=== PATIENT | male | born 1960 | race Caucasian/White ===

== ENCOUNTER 2016-11-05 10:37 | Observation (INO) | payer BC ==
[~2016-11-05] VITALS: Ht 180.3 cm; Wt 102.0 kg
--- NOTE | ~2016-11-05 | CR72 ---
[facility] A Service of [facility] & [facility] RADIOLOGY TEXT RESULTS PATIENT: LYNETTE PETERSEN LOCATION: [facility] : 60 UNIT #: [id number] AGE: [address]: Ira Courtney MD SEX: M ORDER DR: [id number] [facility] [address] [place], [place] [address] [id number] MR#: [id number] Acc #: [id number] NAME: LYNETTE PETERSEN : 1960 SEX: M STUDY DATE/TIME: 11/05/2016 11:13 UNIT: [facility] ROOM: STUDY DESCRIPTION: CR Chest Single View Portable Attending Physician: Ira Courtney M.D. Ordering Physician: Ira Courtney M.D. Primary Care Physician: Triston Larsen M.D. MEDICAL IMAGING REPORT This report is preliminary unless electronic signature is present EXAM Chest portable 11/05/2016 1113 hours HISTORY 55-year-old man with complaint of chest pain and shortness of air for 1 day. History of hypertension. COMPARISON None. FINDINGS Single upright view of the chest demonstrates normal heart size. Mediastinal and hilar contours are normal. Lungs are clear and there are no effusions. IMPRESSION No acute cardiopulmonary findings. Dictated by... Ariela Gómez M.D. THIS IS AN ELECTRONICALLY VERIFIED REPORT Ariela Gómez M.D. at 11/05/2016 1:44 PM ADELINA/popeye TD: 11/05/2016 13:24 JOB #: [id number] MEDICAL IMAGING REPORT Page 1 of 1 COPY
--- NOTE | ~2016-11-05 | HP ---
Unit #: [id number] #: [id number] Patient: LYNETTE PETERSEN [id number] [facility]. [place], [place] [address] [id number] MR#: [id number] NAME: LYNETTE PETERSEN ROOM: Age: 55 Sex: M Admission Date: 11/05/2016 : 1960 Attending Physician: Ira Courtney M.D. Primary Care Physician: Triston Larsen M.D. HISTORY AND PHYSICAL HISTORY OF PRESENT ILLNESS This is a 55-year-old white male who was at work yesterday and began to have substernal chest tightness with associated shortness of breath. His chest tightness lasts for two and a half hours before subsiding. Today the patient went to work and at approximately (1) p.m., he began to have the same chest tightness that occurred on exertion. There was no radiation to his neck, arm, or jaw. He had associated shortness of breath and diaphoresis. He had a stress test four years ago because of chest pain that was negative. Afterward, the patient developed chest pain and cardiac catheterization was done. He had stents placed to the circumflex artery and obtuse marginal branch at [facility] in [place], [place]. On arrival to the emergency room, the patient still had some chest discomfort. His electrocardiogram shows no acute ischemic changes. Troponin initially negative. He does have other risk factors for ischemic heart disease. Includes hypertension, hyperlipidemia, and has smoked a pipe in the past. PAST MEDICAL HISTORY 1. Hypertension. 2. Hyperlipidemia. 3. PCI and stent to the OM-1 and diagonal branch four years ago at [facility] in [place], [place]. No details available. 4. Occasional pipe smoker. PAST SURGICAL HISTORY 1. Tonsillectomy. 2. Knee arthroscopy surgery. SOCIAL HISTORY The patient is and works for [employer]. He smokes a pipe on rare occasions. No illicit drug or alcohol use. FAMILY HISTORY The patient is adopted. He has been told that his biological mother has some heart problems in the past. Father's history is unknown. ALLERGIES No known drug allergies. HOME MEDICATIONS 1. Lisinopril 40 mg daily. 2. Simvastatin 20 mg nightly. 3. Prilosec 20 mg daily. 4. Testosterone 0.5 mL IM q.2 weeks. Unit #: [id number] #: [id number] Patient: LYNETTE PETERSEN 5. Norvasc 5 mg daily. 6. Flonase two sprays each nostril daily. 7. Hydrochlorothiazide 12.5 mg daily. REVIEW OF SYSTEMS A 10-point review of systems negative except details stated in the HPI. PHYSICAL EXAMINATION VITAL SIGNS: Blood pressure 116/96, heart rate 72, temperature 98.5. BMI 31. GENERAL: This is a very pleasant 55-year-old mildly obese white male who is in no acute distress. NEUROLOGIC: He is awake, alert, and oriented. There is no focal weaknesses. NECK: Trachea is midline. No thyromegaly or lymphadenopathy. No jugular venous distention. HEART: S1, S2 heart sounds are normal. No murmurs. No rubs. No clicks. Regular rate and rhythm. LUNGS: Clear without rales, rhonchi, wheezes. ABDOMEN: Soft, nontender. Bowel sounds are present. EXTREMITIES: Without leg edema. SKIN: Warm and dry. DIAGNOSTIC STUDIES LABORATORY: White count 7.2, hemoglobin 15, hematocrit 44.3, platelet count 261,000. Glucose 102, BUN 15, creatinine 0.6, sodium 137, potassium 3.7. BNP 15. Troponin less than 0.05 x2. CARDIOVASCULAR: Electrocardiogram: Normal sinus rhythm with a rate of 88 beats per minute. There are no acute ischemic changes. IMPRESSION 1. New-onset exertional angina. 2. History of percutaneous coronary intervention with stent placement to the diagonal and OM-1 four years ago, no details available. 3. Hypertension. 4. Hyperlipidemia. PLAN 1. The patient's symptoms are concerning for ischemic heart disease. Troponin is negative and has initially been ruled out for an acute myocardial infarction. Because of risk factors and history of stents in the past, advised the patient to undergo cardiac catheterization to re-evaluate his coronary anatomy. This has been discussed with the patient and his including risks and benefits and they are agreeable. 2. Will instruct the patient on aspirin and give a heparin bolus. 3. Nitrates will be added. 4. Increase Lipitor to 80 mg daily. 5. Lipid profile will be obtained. 6. Will obtain records from [facility] in [place], [place]. 7. Further recommendations pending results of the cardiac catheterization. Unit #: [id number] #: [id number] Patient: LYNETTE PETERSEN Dictated by Juice Phillips A.P.R.N. for Tamy Brannon TD: 11/05/2016 14:24 JOB #: [id number] HISTORY AND PHYSICAL Page 1 of 1 X Juice Phillips APRN X HISTORY AND PHYSICAL
--- NOTE | ~2016-11-05 | EKG ---
PATIENT: LYNETTE PETERSEN UNIT #: [id number] Ventricular Rate: 88 BPM Atrial Rate: 88 BPM P-R Interval: 168 ms QRS Duration: 82 ms Q-T Interval: 348 ms QTC Calculation(Bezet): 421 ms P [place]: 58 degrees Calculated R [place]: 85 degrees Calculated T [place]: 12 degrees Diagnosis Line: Normal sinus rhythm Diagnosis Line: Normal ECG Diagnosis Line: No previous ECGs available Diagnosis Line: Confirmed by NATACHA COSTA MD ([id number]) on 11/06/2016 Diagnosis Line: 8:34:48 AM INTERPRETING MD: IGOR MEDELLIN
[2016-11-05 11:39] LABS: BASOPHIL# 0.1 X10e3 (0-0.3); BASOPHIL% 0.8 % (0-2.5); EOSINOPHIL# 0.1 X10e3 (0-0.7); EOSINOPHIL% 1.2 % (0.0-7.0); HEMATOCRIT 44.3 % (38.0-50.0); LYMPHOCYTE# 1.4 X10e3 (1.0-3.5); LYMPHOCYTE% 19.9 % (17.0-45.0); MEAN CELL VOLUME 86.2 FL (83-96); MEAN CORPUSCULAR HEMOGLOBIN 29.1 PG (28-34); MEAN CORPUSCULAR HGB CONC 33.8 g/dL (30-36); MEAN PLATELET VOLUME 6.2 FL (6.5-11.5); MONOCYTE# 0.5 X10e3 (0-1.0); MONOCYTE% 7.4 % (3.0-12.0); NEUTROPHIL# 5.1 X10e3 (1.5-7.1); NEUTROPHIL% 70.7 % (40-75); PLATELET COUNT 261 X10e3 (140-420); RED BLOOD COUNT 5.13 X10e (3.90-5.60); WHITE BLOOD COUNT 7.2 X10e3 (4.0-10.5)
[2016-11-05 11:45] LABS: DIFF IND NO
[2016-11-05 11:51] LABS: INR 1.1; PROTHROMBIN TIME (PATIENT) 11.4 SECONDS (10.0-11.7)
[2016-11-05 11:52] LABS: POC - CKMB 1.1 ng/mL (0.0-7.9); POC - TROPONIN <0.05 ng/mL (<=0.05)
[2016-11-05 12:16] LABS: CREATININE SERUM 0.6 mg/dL (0.6-1.4); GLOM FILT RATE Estimated 113.2 mL/min (>60); POTASSIUM 3.7 mmol/L (3.5-5.1)
[2016-11-05] MEDS ORDERED: PATIENT'S PHARMACY (12:58)
[2016-11-05] MEDS ORDERED: PRILOSEC PO (12:58)
[2016-11-05] MEDS ORDERED: LISINOPRIL PO (12:58)
[2016-11-05] MEDS ORDERED: DEPO-TESTOT200 MG/ML IM (12:58)
[2016-11-05] MEDS ORDERED: NORVASC PO (12:58)
[2016-11-05] MEDS ORDERED: ZOCOR PO (12:58)
[2016-11-05] MEDS ORDERED: HYDROCHLOROTH12.5 M1 PO (12:59)
[2016-11-05] MEDS ORDERED: FLONASE ALLERG9.9 ML (12:59)
[2016-11-05 13:15] LABS: POC - CKMB <1.0 ng/mL (0.0-7.9); POC - TROPONIN <0.05 ng/mL (<=0.05)
[2016-11-05] MEDS ORDERED: ATORVASTATIN CA80 MG PO (19:11)
[2016-11-05] MEDS ORDERED: BAYER CHEWABLE81 MG PO (19:11)
[2016-11-05] MEDS ORDERED: TOPROL XL PO (19:11)
[2016-11-05] MEDS ORDERED: IMDUR-ER30 M2 PO (19:12)
[2016-11-05] MEDS ORDERED: CLOPIDOGREL75 MG PO (19:12)
[2016-11-05] MEDS ORDERED: NITROSTAT0.4 MG SL (19:14)
== END 2016-11-05 20:15 | disposition home or self-care (01) | DRG 303 ==
LOC: CED 10:37 → CEDOF 16:01 → C5B 16:02
PROVIDERS: Emergency Medicine
DX: I25.118 Atherosclerotic heart disease of native coronary artery with other forms of angina pectoris (principal); Z95.5 Presence of coronary angioplasty implant and graft; I10 Essential (primary) hypertension; E78.5 Hyperlipidemia, unspecified; F17.290 Nicotine dependence, other tobacco product, uncomplicated; Z79.899 Other long term (current) drug therapy; Z79.51 Long term (current) use of inhaled steroids; Z98.890 Other specified postprocedural states
CPT/HCPCS: 71010; 80048; 82553; 83880; 84484; 85025; 85610; 93005; 99285; C1769; C1887; C1894; G0378; J1644; J2250; J3010